=== PATIENT | male | born 1955 | race Caucasian/White ===

== ENCOUNTER 2019-01-26 06:07 | Inpatient (IN) ==
[2019-01-20 17:52] LABS: Appearance,Urine CLEAR; Bilirubin,Urine NEG (NEG); Color,Urine STRAW; Culture Indicated,Urine NO; Glucose,Urine (UA) NEGATIVE (NEG); Ketones,Urine NEG (NEG); Leukocyte Esterase,Urine NEG /uL (NEG); Nitrate,Urine NEG (NEG); Protein,Urine NEG (NEG); Specific Gravity,Urine 1.006 (1.000-1.035); Urine Blood NEG mg/dL (<0.03); Urobilinogen,Urine NEG (NEG)
[2019-01-20 20:09] LABS: Basophils # (Auto) 0 K/mcL (0.0-0.3); Basophils % (Auto) 0.4 % (0.0-2.0); Blood Urea Nitrogen 19 mg/dl (8-23); Calcium 9.7 mg/dl (8.6-10.4); Carbon Dioxide 29 mmol/L (22-30); Chloride 99 mmol/L (96-108); Eosinophils # (Auto) 0.2 K/mcL (0.0-0.7); Eosinophils % (Auto) 3.8 % (0.0-7.0); Glomerular Filtration Rate 71; Glucose 100 mg/dL (70-105); Granulocytes % (Auto) 61.5 % (38.0-78.0); Hematocrit 40.9 % (41.0-55.0); Hemoglobin 14.5 g/dL (13.5-16.5); Lymphocytes # (Auto) 1.2 K/mcL (1.5-4.8); Lymphocytes % (Auto) 23.1 % (15.5-49.0); Mean Cell Volume 88.7 fL (80.0-100.0); Mean Corpuscular HGB Conc 35.5 g/dL (31.0-36.0); Mean Platelet Volume 9.9 fL (7.4-10.4); Monocytes # (Auto) 0.6 K/mcL (0.1-0.9); Monocytes % (Auto) 11.2 % (1.0-12.0); Platelet Count 162 K/mcL (140-440); Red Cell Distribution Width 13.2 % (11.5-14.5); WBC 5.1 K/mcL (4.5-11.0)
[~2019-01-26 06:07] MED LIST: 0.9 % SODIUM CHLORIDE 9 ML, KETOROLAC 30 MG, ROPIVACAINE HCL/PF 49.5 ML, EPINEPHrine 0.... IJ SCH; ACETAMINOPHEN 500 MG TABLET PO SCH; CELECOXIB 200 MG CAPSULE PO SCH; PREGABALIN 75 MG CAPSULE PO SCH; ceFAZolin 2 GM in DEXTROSE 5% IN WATER 50 ML IV SCH; oxyCODONE 10 MG TAB.ER.12H PO SCH
[2019-01-26] MEDS ORDERED: GENTAMICIN SULFATE 800 MG/20 ML VIAL IR ONE (06:58)
[2019-01-26] MEDS ORDERED: PHENYLEPHRINE 10 MG/ML VIAL IV ONE (07:45)
[2019-01-26] MEDS ORDERED: KETAMINE 100 MG/ML ML IV ONE (07:45)
[2019-01-26] MEDS ORDERED: DEXAMETHASONE 10 MG/ML VIAL IV ONE (07:45)
[2019-01-26] MEDS ORDERED: ROPIVACAINE HCL/PF 30 ML VIAL IJ ONE (07:45)
[2019-01-26] MEDS ORDERED: TRANEXAMIC ACID 1,000 MG/10 ML VIAL IV ONE (07:45)
[2019-01-26] MEDS ORDERED: GLYCOPYRROLATE 0.2 MG/ML VIAL IV ONE (07:45)
[2019-01-26] MEDS ORDERED: ONDANSETRON 4 MG/2 ML VIAL IV ONE (07:45)
[2019-01-26] MEDS ORDERED: LIDOCAINE HCL/PF 100 MG/5 ML SYRINGE IV ONE (07:45)
[2019-01-26] MEDS ORDERED: PROPOFOL 200 MG/20 ML VIAL IV ONE (07:45)
[2019-01-26] MEDS ORDERED: ePHEDrine 50 MG/ML AMPUL IV ONE (07:45)
[2019-01-26] MEDS ORDERED: TRANEXAMIC ACID 1,000 MG/10 ML VIAL IV SCH (09:15)
[2019-01-26] MEDS ORDERED: MAGNESIUM HYDROXIDE 30 ML ORAL.SUSP PO PRN (09:15)
[2019-01-26] MEDS ORDERED: FLEETS ADULT ENEMA PR PRN (09:15)
[2019-01-26] MEDS ORDERED: BENZOCAINE/MENTHOL 1 LOZENGE PO PRN (09:15)
[2019-01-26] MEDS ORDERED: POLYETHYLENE GLYCOL 3350 17 GM PACKET PO PRN (09:15)
[2019-01-26] MEDS ORDERED: HYDROmorphone 2 MG/ML VIAL IV PRN (09:15)
[2019-01-26] MEDS ORDERED: ONDANSETRON 4 MG/2 ML VIAL IV PRN ×2 (09:15→09:49)
[2019-01-26] MEDS ORDERED: ACETAMINOPHEN 325 MG TABLET PO PRN (09:15)
[2019-01-26] MEDS ORDERED: BISACODYL 10 MG SUPP.RECT PR PRN (09:15)
--- NOTE | 2019-01-26 09:45 | Operative Note ---
DATE OF OPERATION: 01/26/2019 PREOPERATIVE DIAGNOSIS: Right knee degenerative arthritis of two of the three compartments. POSTOPERATIVE DIAGNOSIS: Right knee degenerative arthritis of two of the three compartments. PROCEDURE: Right total knee arthroplasty. SURGEON: Yosi Pires M.D. PIPE RACKER: Gianni Isaac PA-C. The PA's assistance was required for the safe and efficient completion of the entire case. This provider's expertise and technical skill were required throughout the case. The PA assisted with preoperative coordination, intraoperative retraction, wound closure, dressing and splint application, as well as postoperative documentation and care coordination. ANESTHESIA: General LMA anesthesia. COMPLICATIONS: None. DESCRIPTION OF PROCEDURE: The patient was brought to the operating room and put to sleep with general LMA anesthesia. Once asleep, a timeout was performed where we confirmed the operative site. Once we confirmed the operative site by initials, consent form, and x-ray, we were able to then proceed with the case, preop antibiotics being given and tranexamic acid being given. A midline incision was made. We then inspected the whole area of the knee that showed severe arthritis laterally with a large cyst into the bone that extended full-thickness into the posterior corner. Once this was identified, we proceeded with a total knee because of the damage in the posterior medial compartment. We proceeded with total knee arthroplasty using the [employer] robot as templated. The robot was brought in after registering the center of hip rotation. We registered the arrays, 30 points on the femur and the tibia, and the medial and lateral malleoli. Once we balanced the knee, both at 90 degrees and 15 degrees, we were able to then make the bony cuts and then we placed the implants after removing spurs and the meniscus remnants. We released the lateral IT band as well because of the contracture. We also released the lateral collateral ligament to help with extension and alignment. Once these were done, we balanced the knee with a 10 mm poly. These were cemented into place, all components. We prepared the patella using a 35 mm oval patella measuring initially 25 mm. This was cut to 15 mm and then we cemented into place a 35 mm diameter patella with cement. Once the cement was dry, we then removed any excess cement. We were able to confirm alignment, injected the soft tissue with the post-inject formula, and then closed the anterior medial capsule with #1 Stratafix x2. We closed the skin with Stratafix, as well as removed the pins both intra-articular and the arrays. Once these were accounted for, we finished the closure of the wound and an adhesive dressing on the skin was applied. A sterile bandage applied. Tourniquet was deflated at 55 minutes. RBH:garo Job ID: [id number] Doc ID: [id number] Yosi Pires MD
[2019-01-26] MEDS ORDERED: IPRATROPIUM/ALBUTEROL 3 ML AMPUL.NEB NEB PRN (09:49)
[2019-01-26] MEDS ORDERED: fentaNYL 100 MCG/2 ML VIAL IV PRN (09:49)
[2019-01-26] MEDS ORDERED: METHOCARBAMOL 1,000 MG/10 ML VIAL IV PRN (09:49)
[2019-01-26] MEDS ORDERED: MEPERIDINE 25 MG/ML SYRINGE IV PRN (09:49)
[2019-01-26] MEDS ORDERED: LACTATED RINGERS 1,000 ML IV SCH (10:00)
[2019-01-26] MEDS: LACTATED RINGERS 1,000 ML IV SCH ×2 (10:30→18:40)
--- NOTE | 2019-01-26 10:36 | XRay Report ---
CLINICAL INFORMATION: Postoperative follow-up TECHNIQUE: AP and crosstable lateral right knee COMPARISON: None. FINDINGS: Status post right total knee arthroplasty. Normal anatomic alignment demonstrated. There is soft tissue and intra-articular gas. IMPRESSION: Status post right total knee arthroplasty Interpreted and Authenticated by: Fabricio Cm 01/26/19
--- NOTE | 2019-01-26 10:50 | Discharge Summary ---
Ortho Discharge - TKA - Patient Instructions Diet: Regular Diet Activity: activity as tolerated, weight bearing as tolerated Total Knee Protocol: For Total Knee: Start ROM GAIL with stationary bike or rocking chair. Work on gaining full extension of knee. Posterior dislocation precautions provided. Hip abductor strengthening and gait training instructions provided. Apply Cryocuff as instructed. Dressing Care: May shower in 2 days - Follow Up Plan Follow Up Appointments: Yosi Pires MD [Physician] - 02/10/19 10:40 am Disposition: Home, Self-Care Prognosis: Good Rehab Potential: Good I certify that the patient requires SNF services: No Overall status at discharge: patient is progressing back to baseline - Orders For Discharge Prescriptions: Docusate Sodium [Colace] 100 mg PO BID #60 cap Transmission Status: Pending to [facility] Aspirin [Ecotrin] 325 mg PO BID #60 tab.ec Transmission Status: Pending to [facility] oxyCODONE/APAP [Percocet 5-325 mg] 1 - 2 tab PO Q4HP PRN #75 tab PRN Reason: Pain Level 3-6 Prescription Printed
[2019-01-26] MEDS: KETOROLAC 15 MG/ML VIAL IV SCH ×3 (13:01→23:36)
--- NOTE | 2019-01-26 15:09 | Brief Operative Note ---
Date of procedure: 01/26/19 Pre-op diagnosis: Right knee djd severe Post-op diagnosis: same Procedure: right tka with [employer] robot Grafts/Implants: Yes Anesthesia: GETA Complications: none Surgeon: Yosi Pires Custodial Operations Manager: Gianni Isaac Estimated blood loss (cc): 50 Tourniquet Time (Minutes): 55 Specimens Removed/Pathology: none sent Condition: stable Disposition: PACU
[2019-01-26] MEDS: ceFAZolin 1 GM VIAL IV SCH ×2 (15:31→23:37)
[2019-01-26] MEDS: 0.9 % SODIUM CHLORIDE 10 ML SYRINGE IV SCH ×2 (15:32→21:47)
[2019-01-26] MEDS ORDERED: TEMAZEPAM 15 MG CAPSULE PO PRN (21:00)
[2019-01-26] MEDS ORDERED: SENNOSIDES 1 TABLET PO SCH (21:00)
[2019-01-26] MEDS: FERROUS SULFATE 325 MG TABLET PO SCH (21:46)
[2019-01-26] MEDS: ASPIRIN 325 MG ENTERIC COATED TABLET PO SCH (21:46)
[2019-01-26] MEDS: DOCUSATE SODIUM 100 MG CAPSULE PO SCH (21:46)
[2019-01-26] MEDS: oxyCODONE/APAP 5/325MG TABLET PO PRN (21:59)
[2019-01-27] MEDS: oxyCODONE/APAP 5/325MG TABLET PO PRN ×2 (04:27→10:25)
[2019-01-27] MEDS: 0.9 % SODIUM CHLORIDE 10 ML SYRINGE IV SCH ×2 (04:28→13:55)
[2019-01-27] MEDS: KETOROLAC 15 MG/ML VIAL IV SCH ×2 (05:02→13:54)
[2019-01-27] MEDS: LACTATED RINGERS 1,000 ML IV SCH ×2 (05:04→14:04)
--- NOTE | 2019-01-27 07:45 | Orthopedic Progress Note ---
Subjective Patient information: Note initiated : 01/27/19 at 7:45 am Service Date, if different from initiated Date: [] Patient: Anthony Ruiz 63 y/o M admitted on 01/26/19 for Right Uni Lateral Maxi Knee vs. Total Knee. Chief Complaint: [Pt is stable this morning on post operative day 1 without any significant concerns or complaints. Patients vital signs have remained stable. Patients dressing is dry and is grossly intact from a neurovascular and motor standpoint. Patients 10 point ROS is otherwise negative. ] Objective Vital signs: Vital Signs Temp Pulse Resp BP Pulse Ox 01/27/19 03:51 98.1 F 71 14 118/70 96 01/26/19 23:00 99.1 F H 83 14 114/75 96 01/26/19 19:08 97.9 F 83 12 119/64 97 01/26/19 17:00 97 01/26/19 16:00 97.9 F 74 18 114/70 96 01/26/19 13:15 97.4 F 62 18 118/72 97 01/26/19 12:15 72 18 109/74 97 01/26/19 11:45 70 18 117/79 98 01/26/19 11:15 75 18 117/74 98 01/26/19 11:00 69 16 122/70 94 01/26/19 10:45 69 16 114/70 97 01/26/19 10:30 78 16 118/72 98 01/26/19 10:15 96.8 F L 75 14 113/69 96 01/26/19 10:14 98.9 F 84 18 135/72 97 01/26/19 10:10 97.5 F 79 10 L 119/65 99 01/26/19 09:55 97.0 F 77 9 L 119/64 98 01/26/19 09:50 84 8 L 122/69 99 01/26/19 09:45 87 10 L 129/73 100 01/26/19 09:40 76 10 L 104/53 100 01/26/19 09:38 97.8 F 70 9 L 106/54 100 Intake and Output 01/26/19 01/27/19 01/27/19 21:59 05:59 13:59 Intake Total 4357 2183 Output Total 1725 1850 Balance 2632 333 Intake: IV 817 933 Lactated Ringers 1,000 ml @ 100 817 933 mls/hr IV .Q10H PREETHI Rx#: [id number] Oral 3540 1250 Output: Urine Catheter Amount 1550 Straight 1550 Void Amount 175 1850 Other: Meal Dinner Percent of Meal Consumed 100% Feeding Ability Independent Urine Appearance Clear Straight Clear Urine Color Bright Yellow Straight Straw Urine Odor Normal Straight Normal Weight 176 lb 8 oz Intake & Output: Intake & Output 01/26/19 01/27/19 01/27/19 21:59 05:59 13:59 Intake Total 4357 2183 Output Total 1725 1850 Balance 2632 333 Weight 176 lb 8 oz Intake: IV 817 933 Lactated Ringers 1,000 ml @ 100 817 933 mls/hr IV .Q10H PREETHI Rx#: [id number] Oral 3540 1250 Output: Urine Catheter Amount 1550 Straight 1550 Void Amount 175 1850 Other: Meal Dinner Percent of Meal Consumed 100% Feeding Ability Independent Urine Appearance Clear Straight Clear Urine Color Bright Yellow Straight Straw Urine Odor Normal Straight Normal Incision: Yes healing Incision clean and dry: Yes Dressing: Yes clean Neurological exam IM: Yes motor sensory intact, Yes neurovascular intact Extremities exam IM: Yes Foot pink and warm, Yes neurovascular intact - Labs CBC & BMP: 01/27/19 04:08 01/20/19 14:55 Labs: 01/27/19 01/20/19 04:08 14:55 Hgb 14.5 Hct 36.3 L 40.9 L Assessment and Plan (1) Hx of total knee arthroplasty The patient has been educated regarding dressing care, Physical Therapy recommendations, home exercises, restrictions, and follow up appointments. The patient has had all necessary DME prescribed. The patient has remained relativel y stable during their hospital course. Leave Dermabond patch intact until followup Status: Acute
[2019-01-27] MEDS ORDERED: MULTIVIT,THER IRON,CA,FA & MIN 1 TABLET PO SCH (09:00)
[2019-01-27] MEDS ORDERED: GLUCOSAMINE/CHONDROITIN SULF A 1 CAP CAPSULE PO SCH (09:00)
[2019-01-27] MEDS ORDERED: VITAMIN D3 5,000 UNIT CAPSULE PO SCH (09:00)
[2019-01-27] MEDS: DOCUSATE SODIUM 100 MG CAPSULE PO SCH (09:17)
[2019-01-27] MEDS: ASPIRIN 325 MG ENTERIC COATED TABLET PO SCH (09:17)
[2019-01-27] MEDS: FERROUS SULFATE 325 MG TABLET PO SCH (09:17)
== END 2019-01-27 14:50 | disposition home or self-care (01) | DRG 470 ==
LOC: SUR 06:07 → MEDSUR 10:14
PROVIDERS: ADMIT Orthopaedic Surgery; ATTEND Orthopaedic Surgery